=== PATIENT | male | born 1975 | race Caucasian/White ===

== ENCOUNTER 2019-03-23 05:30 | Inpatient (IN) | payer MEDICAID ==
[~2019-03-23] VITALS: Ht 167.6 cm; Wt 83.2 kg
[2019-03-23] VITALS (28 sets, daily range): BP systolic 92–120; BP diastolic 52–79; PULSE 55–150; RESP 16–27; Ht 167.6 cm; Wt 83.2 kg
[~2019-03-23 05:30] MED LIST: NITROGLYCERIN 50 MG/D5W (PMX) 0 ML ONE
[2019-03-23] MEDS ORDERED: ASPIRIN 325 MG TAB PO STA (05:42)
[2019-03-23] MEDS ORDERED: morphine 4 MG/ML VIAL IV STA (05:42)
[2019-03-23] MEDS ORDERED: ONDANSETRON 4 MG INJ IV STA (05:42)
[2019-03-23] MEDS ORDERED: HEPARIN 1000 UNITS/ML 10 ML INJ IV STA (05:45)
[2019-03-23] MEDS ORDERED: HEPARIN 25000 UNITS/250 ML 250 ML IV STA (05:45)
--- NOTE | 2019-03-23 05:53 | ERD ---
ER Documentation Chief Complaint Chief Complaint chest pain x 2 days HPI Is a very pleasant 43-year-old gentleman who presents the emergency with chest pain. EKG at triage shows ST elevation microinfarction. Patient describes 2 to 3 days of symptoms of chest discomfort. Today just prior to arrival he notes worsening chest pressure that is centralized. No mid back pain, no ripping or tearing sensation. No numbness or tingling. Patient is a smoker. The patient has family history of cardiac disease. He denies pleuritic pain cough or significant shortness of breath. Symptoms are moderate. rn postpartum used ROS All systems reviewed and are negative except as per history of present illness. Allergies Allergies: Coded Allergies: No Known Drug Allergies (Verified Allergy, Unknown, 03/23/19) FmHx Family History: No diabetes Physical Exam Vitals Vital Signs Date Temp Pulse Resp B/P (MAP) Pulse Ox O2 O2 Flow FiO2 Time Delivery Rate 03/23/19 47 19 143/94 100 Nasal 06:15 (110) Cannula 03/23/19 54 20 132/91 100 Nasal 2.0 06:00 (105) Cannula 03/23/19 Nasal 2 05:53 Cannula 03/23/19 97.6 68 18 176/100 100 05:33 (125) Physical Exam General: Well developed, well nourished, no acute distress Head: Normocephalic, atraumatic. Eyes: Pupils equally reactive, EOM intact ENT: Moist mucous membranes Neck: Supple, no lymphadenopathy Respiratory: Lungs clear bilaterally, no distress Cardiovascular: RRR, no murmurs, rubs, or gallops Abdominal: Soft, non-tender, non-distended, no peritoneal signs : Deferred MSK: No edema, no unilateral swelling, 5/5 strength Neurologic: Alert and oriented, moving all extremities, normal speech, no focal weakness, no cerebellar signs Skin: No rash Psych: Normal mood Result Diagram: 03/23/19 0540 03/23/19 0540 Results 24 hrs Laboratory Tests Test 03/23/19 05:40 White Blood Count 12.3 10^3/ul Red Blood Count 4.62 10^6/ul Hemoglobin 15.1 g/dl Hematocrit 42.3 % Mean Corpuscular Volume 91.6 fl Mean Corpuscular Hemoglobin 32.7 pg Mean Corpuscular Hemoglobin Concent 35.7 g/dl Red Cell Distribution Width 11.9 % Platelet Count 240 10^3/UL Mean Platelet Volume 10.4 fl Immature Granulocytes % 0.200 % Neutrophils % 67.8 % Lymphocytes % 22.0 % Monocytes % 7.9 % Eosinophils % 1.3 % Basophils % 0.8 % Nucleated Red Blood Cells % 0.0 /100WBC Immature Granulocytes # 0.030 10^3/ul Neutrophils # 8.4 10^3/ul Lymphocytes # 2.7 10^3/ul Monocytes # 1.0 10^3/ul Eosinophils # 0.2 10^3/ul Basophils # 0.1 10^3/ul Nucleated Red Blood Cells # 0.0 10^3/ul Prothrombin Time 12.8 Sec Prothrombin Time Ratio 1.0 INR International Normalized Ratio 0.95 Activated Partial Thromboplast Time 27.9 Sec Sodium Level 136 mmol/L Potassium Level 3.9 mmol/L Chloride Level 99 mmol/L Carbon Dioxide Level 27 mmol/L Anion Gap 10 Blood Urea Nitrogen 8 mg/dl Creatinine 0.58 mg/dl Est Glomerular Filtrat Rate mL/min > 60 mL/min Glucose Level 256 mg/dl Calcium Level 9.2 mg/dl Troponin I Pending Current Medications Medications Dose Sig/Clara Start Time Status Last (Trade) Ordered Route PRN Stop Time Admin Dose Reason Admin Aspirin 325 mg ONCE STAT 03/23/19 DC 03/23/19 (Aspirin) PO 05:42 03/23/19 05:47 05:43 Morphine 4 mg ONCE STAT 03/23/19 DC 03/23/19 Sulfate IV 05:42 03/23/19 05:47 (morphine) 05:43 Ondansetron 4 mg ONCE STAT 03/23/19 DC 03/23/19 HCl (Zofran IV 05:42 03/23/19 05:48 Inj) 05:43 Heparin 5,000 unit ONCE STAT 03/23/19 DC 03/23/19 Sodium IV 05:45 03/23/19 05:45 (Porcine) 05:48 (Heparin (1000 Units/ml)) Heparin 250 ml @ 0 ONCE STAT 03/23/19 DC Sodium mls/hr IV 05:45 03/23/19 (Porcine) 05:48 Procedures/MDM EKG, MONITORS, & DIAGNOSTIC IMAGING: EKG: I reviewed and interpreted a 12-lead EKG. Rhythm: Normal sinus rhythm ST Changes: ST segment elevation in the inferior leads with reciprocal changes in anterior leads T waves: No contiguous T wave inversions Impression: ST elevation myocardial infraction Chest x-ray: I reviewed and interpreted a 1 view of the chest Mediastinum: No enlargement Cardiac silhouette: No cardiomegaly Airspace: Clear lung burnett bilaterally without evidence of pneumothorax Bones: No evidence of fracture PROCEDURES: [None] LAB INTERPRETATION: * Pending MEDICAL DECISION MAKING: The patient's history, physical exam and clinical presentation is consistent with ST elevation myocardial infraction in the inferior pattern. The patient is otherwise well-appearing and has had several days of symptoms but worse recently. His EKG has ST segment elevations with reciprocal changes. Code STEMI activated. 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 Heparin bolus and drip initiated. I will hold on nitroglycerin given inferior changes. * Pacer pads placed on the patient. Critical Care Note: Total time: 35 Indication/Organ System Threat: Acute EKG changes suggestive of ST elevation myocardial infarction and significant risk for cardiovascular compromise and collapse. I spent the above amount of critical care time with the patient, not including billable procedures. This included chart review, consultations, repeat bedside evaluations, and titration of appropriate medications to prevent cardiopulmonary or respiratory collapse. CONSULTATION: middle school history teacher Dr. Magana DISPOSITION PLAN: Taken directly to the [facility] Dr. Aviles notified for admission Departure Diagnosis: Primary Impression: STEMI (ST elevation myocardial infarction) Involved coronary artery: unspecified coronary artery Qualified Codes: I21.3 - ST elevation (STEMI) myocardial infarction of unspecified site Condition: Critical RAYMUNDO ROY MD Mar 23, 2019 05:53
[2019-03-23] MEDS ORDERED: IODIXANOL LOCM 100 ML BTL ONE (06:19)
[2019-03-23] MEDS ORDERED: LIDOCAINE 1% (MDV) 20 ML INJ ONE (06:19)
[2019-03-23] MEDS ORDERED: HEPARIN 1000 UNITS/ML 10 ML INJ ONE (06:19)
[2019-03-23] MEDS ORDERED: NITROGLYCERIN (IC) 100 MCG/ML INJ ONE (06:20)
[2019-03-23] MEDS ORDERED: FENTAnyl 50 MCG/ML VIAL ONE (06:20)
[2019-03-23] MEDS ORDERED: VERAPAMIL 5 MG INJ ONE (06:20)
[2019-03-23] MEDS ORDERED: MIDAZOLAM 1 MG/ML 2 ML INJ ONE (06:20)
[2019-03-23] MEDS ORDERED: TICAGRELOR 90 MG TABLET ONE (06:54)
[2019-03-23] MEDS ORDERED: niCARdipine 25 MG INJ ONE (06:58)
[2019-03-23] MEDS ORDERED: BIVALIRUDIN 250MG /NS 50 ML 50 ML IVPB ONE ×2 (07:02→07:21)
--- NOTE | 2019-03-23 07:25 | OPR ---
Date/Time of Note Date/Time of Note DATE: 03/23/19 TIME: 07:25 Operative Report Procedure Date: Mar 23, [address] elevation myocardial infarction Postoperative Diagnosis Obstructive coronary artery disease ST elevation myocardial infarction Operation/Procedure Performed Left heart catheterization Right and left coronary angiogram Interpretation and supervision of right and left coronary angiogram PCI of the mid to distal RCA with a placement of a 3.0 x 16 mm Synergy drug- eluting stent Left ventricular pressure measurements Right femoral artery approach Conscious sedation Surgeon see signature line Colorist Internal Controls Specialist staff Anesthesia Type: MAC Estimated Blood Loss: minimal Transfusion none Specimen None Grafts/Implants none Complications none Pt Condition Post Procedure: guarded Procedure Description Findings Hemodynamics LV pressure 121/13 with EDP of 22 Aortic pressure 111/64 Coronary findings Left main is large caliber vessel with no significant disease LAD is a medium caliber vessel with a mid 30% stenosis Circumflex is a medium caliber vessel with mild luminal irregularities RCA is a medium to large caliber vessel, prior to the bifurcation of the PDA and PLB there is a 99% stenosis Description of procedure Patient brought to the Internal Controls Specialist after informed consent. Patient prepped and draped as per protocol. Initially, right radial artery access was obtained but we had difficulty wiring the vessel. We then switched over to right femoral artery approach using ultrasound guidance. A micropuncture kit was used, a 6 F rench sheath was placed. Initially a JL 3.5 diagnostic catheter was used to engage left main. Angiogram was performed. We then use a 6 Cymraes Peter 0.75 catheter to engage the RCA and angiogram was performed. This was a culprit lesion. Angiomax was used for anticoagulation. A run through wire was used to cross the lesion. We predilated. This causes patient become bradycardic, atropine was given with improvement in heart rates. We then stented with a 3.0 x 16 mm Synergy drug-eluting stent. This was postdilated with at high pressure with the stent delivery system balloon. There was an excellent graphic result with CYDNEY-3 flow with no evidence of dissection with good myocardial blush. Given there was not good engagement of the left system with a JL 3.5, we next went with a diagnostic JL4 catheter and angiogram of the left system was performed. There was no evidence of any significant lesions. We then went in with a 5 Cymraes pigtail and into the left ventricle and pressure measurements were obtained as well as pullback. Patient was loaded with Brilinta once the culprit lesion was visualized. Groin shot was performed with good sheath position, we placed an Angio-Seal device. There was no immediate complications. Recommendations Dual antiplatelet therapy for minimum of 1 year to maintain stent patency. Aggressive risk factor management. Osmel Magana DO Mar 23, 2019 07:25
[2019-03-23] MEDS ORDERED: ONDANSETRON 4 MG INJ IV PRN (07:30)
[2019-03-23] MEDS ORDERED: AL HYDROX/MG HYDROX/SIMETH 30 ML CUP PO PRN (07:30)
[2019-03-23] MEDS ORDERED: SOD CHLORIDE 0.9% 1,000 ML IV SCH (08:00)
[2019-03-23] MEDS ORDERED: GLUCOSE GEL 15 GRAM TUBE PO PRN ×2 (12:30)
[2019-03-23] MEDS ORDERED: GLUCOSE GEL 15 GRAM TUBE BUCCAL PRN (12:30)
[2019-03-23] MEDS ORDERED: GLUCAGON 1 MG INJ IM PRN (12:30)
[2019-03-23] MEDS ORDERED: DEXTROSE 50% 50 ML SYRINGE IV PRN ×2 (12:30)
--- NOTE | 2019-03-23 14:05 | CONS ---
Assessment/Plan Assessment/Plan Hospital Course (Demo Recall) Inferior ST elevation myocardial infarction CAD status post PCI to RCA 03/23/2019 New diagnosis diabetes Tobacco use No health insurance Patient with cardiac catheter seen with evidence of severe stenosis in the RCA status post single drug-eluting stent He is currently chest pain-free, continue dual antiplatelet therapy, check echocardiogram, statin therapy No beta-whitney given bradycardia Diabetes management Smoking cessation Discussed with patient, he he tells me does not have health insurance and would have issues with medications and follow-up. I did request case management involvement. Would switch patient over to Plavix starting from tomorrow given this is generic and more affordable for patient. I did discuss with the patient at length the importance of medication compliance to prevent recurrent myocardial infarction Consultation Date/Type/Reason Admit Date/Time Mar 23, 2019 at 07:21 Type of Consult Cardiology Reason for Consultation Chest pain and ST elevation myocardial infarction Date/Time of Note DATE: 03/23/19 TIME: 14:01 Hx of Present Illness This is a 43-year-old male with past medical history of tobacco use, who has not seen a physician in many years who presents with chest pain worsening over the past 2 to 3 days. Symptoms became severe and he came to the emergency room. Chest pain with shortness of breath. Chest pain is pressure-like. Denies any cardiac history but has not seen a physician at an many years. He tells me he does not have health insurance because of that, he does not see a doctor regularly. 12 point review of systems was performed with all pertinent positives and negatives mentioned above and all else is negative Past Medical History Medical History: no pertinent history Medications Current Medications Miscellaneous Information (* Miscellaneous Pharmacy Order) Hold all Metformin ... ONCE XX ; Start 03/23/19 at 07:30; Stop 03/25/19 at 07:29 Aspirin (Halfprin) 81 mg DAILY PO ; Start 03/24/19 at 09:00 Al Hydrox/Mg Hydrox/Simethicone (Mag-Al Plus) 30 ml Q4H PRN PO GASTROINTESTINAL UPSET; Start 03/23/19 at 07:30 Ondansetron HCl (Zofran Inj) 4 mg Q4H PRN IV NAUSEA AND/OR VOMITING; Start 03/23/19 at 07:30 Atorvastatin Calcium (Lipitor) 80 mg DAILY@21 PO ; Start 03/23/19 at 21:00 Ticagrelor (Brilinta) 90 mg BID PO ; Start 03/23/19 at 21:00 Insulin Aspart (Novolog Insulin Pen) NOVOLOG *MILD* ALGORITHM WITH MEALS BEDTIME SC ; Start 03/23/19 at 17:35 Miscellaneous Information 1 ea NOTE XX ; Start 03/23/19 at 12:30 Glucose (Glutose) 15 gm Q15M PRN PO DECREASED GLUCOSE; Start 03/23/19 at 12:30 Glucose (Glutose) 22.5 gm Q15M PRN PO DECREASED GLUCOSE; Start 03/23/19 at 12:30 Dextrose (D50w Syringe) 25 ml Q15M PRN IV DECREASED GLUCOSE; Start 03/23/19 at 12:30 Dextrose (D50w Syringe) 50 ml Q15M PRN IV DECREASED GLUCOSE; Start 03/23/19 at 12:30 Glucagon (Glucagen) 1 mg Q15M PRN IM DECREASED GLUCOSE; Start 03/23/19 at 12:30 Glucose (Glutose) 15 gm Q15M PRN BUCCAL DECREASED GLUCOSE; Start 03/23/19 at 12:30 Diagnostic Test (Pha) (Accu-Chek) 1 ea 02 XX ; Start 03/24/19 at 02:00 Allergies: Coded Allergies: No Known Drug Allergies (Verified Allergy, Unknown, 03/23/19) Past Surgical History Past Surgical Hx: no surgical history Social History Alcohol Use: occasionally Smoking Status: Current every day smoker Drug Use: none 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 Vital Signs Vitals Vital Signs Date Temp Pulse Resp B/P (MAP) Pulse Ox O2 O2 Flow FiO2 Time Delivery Rate 03/23/19 56 12:00 03/23/19 20 100/70 100 09:45 (80) 03/23/19 Room Air 09:00 03/23/19 98.1 08:00 03/23/19 2.0 06:00 Exam Constitutional: alert, oriented, well developed Head: normocephalic Respiratory: clear to auscultation, normal air movement Cardiovascular: regular rate and rhythm, other (S1-S2 heard) Gastrointestinal: soft, non-tender, bowel sounds Extremities: other (No significant edema) Labs Result Diagram: 03/23/19 0540 03/23/19 0540 Results 24hrs Laboratory Tests Test 03/23/19 05:40 03/23/19 10:54 03/23/19 11:57 White Blood Count 12.3 H Red Blood Count 4.62 L Hemoglobin 15.1 Hematocrit 42.3 Mean Corpuscular Volume 91.6 Mean Corpuscular Hemoglobin 32.7 Mean Corpuscular Hemoglobin Concent 35.7 Red Cell Distribution Width 11.9 Platelet Count 240 Mean Platelet Volume 10.4 Immature Granulocytes % 0.200 Neutrophils % 67.8 Lymphocytes % 22.0 Monocytes % 7.9 Eosinophils % 1.3 Basophils % 0.8 Nucleated Red Blood Cells % 0.0 Immature Granulocytes # 0.030 Neutrophils # 8.4 H Lymphocytes # 2.7 Monocytes # 1.0 H Eosinophils # 0.2 Basophils # 0.1 Nucleated Red Blood Cells # 0.0 Prothrombin Time 12.8 Prothrombin Time Ratio 1.0 INR International Normalized Ratio 0.95 Activated Partial Thromboplast Time 27.9 Sodium Level 136 Potassium Level 3.9 Chloride Level 99 Carbon Dioxide Level 27 Anion Gap 10 Blood Urea Nitrogen 8 Creatinine 0.58 L Est Glomerular Filtrat Rate mL/min > 60 Glucose Level 256 H Hemoglobin A1c 9.7 H Calcium Level 9.2 Troponin I 0.952 *H 71.600 *H Creatine Kinase 2188 H Creatine Kinase Index 7.5 Creatinine Kinase MB (Mass) 164.00 H Bedside Glucose 237 H Imaging Imaging ECG with inferior ST elevations Medications Medications Current Medications Miscellaneous Information (* Miscellaneous Pharmacy Order) Hold all Metformin ... ONCE XX ; Start 03/23/19 at 07:30; Stop 03/25/19 at 07:29 Aspirin (Halfprin) 81 mg DAILY PO ; Start 03/24/19 at 09:00 Al Hydrox/Mg Hydrox/Simethicone (Mag-Al Plus) 30 ml Q4H PRN PO GASTROINTESTINAL UPSET; Start 03/23/19 at 07:30 Ondansetron HCl (Zofran Inj) 4 mg Q4H PRN IV NAUSEA AND/OR VOMITING; Start 03/23/19 at 07:30 Atorvastatin Calcium (Lipitor) 80 mg DAILY@21 PO ; Start 03/23/19 at 21:00 Ticagrelor (Brilinta) 90 mg BID PO ; Start 03/23/19 at 21:00 Insulin Aspart (Novolog Insulin Pen) NOVOLOG *MILD* ALGORITHM WITH MEALS BEDTIME SC ; Start 6/7/19 at 17:35 Miscellaneous Information 1 ea NOTE XX ; Start 03/23/19 at 12:30 Glucose (Glutose) 15 gm Q15M PRN PO DECREASED GLUCOSE; Start 03/23/19 at 12:30 Glucose (Glutose) 22.5 gm Q15M PRN PO DECREASED GLUCOSE; Start 03/23/19 at 12:30 Dextrose (D50w Syringe) 25 ml Q15M PRN IV DECREASED GLUCOSE; Start 03/23/19 at 1 2:30 Dextrose (D50w Syringe) 50 ml Q15M PRN IV DECREASED GLUCOSE; Start 03/23/19 at 12:30 Glucagon (Glucagen) 1 mg Q15M PRN IM DECREASED GLUCOSE; Start 03/23/19 at 12:30 Glucose (Glutose) 15 gm Q15M PRN BUCCAL DECREASED GLUCOSE; Start 03/23/19 at 12:30 Diagnostic Test (Pha) (Accu-Chek) 1 ea 02 XX ; Start 03/24/19 at 02:00 Osmel Magana DO Mar 23, 2019 14:05
[2019-03-23] MEDS: SOD CHLORIDE 0.9% 1,000 ML IV SCH (16:00)
--- NOTE | 2019-03-23 16:06 | HP ---
Date/Time of Note Date/Time of Note DATE: 03/23/19 TIME: 16:00 Assessment/Plan VTE Prophylaxis SCD applied (from Nsg): Yes Pharmacological prophylaxis: NA/contraindicated Pharm contraindication: low risk/ambulating Lines/Catheters IV Catheter Type (from Nrsg): Peripheral IV Urinary Cath still in place: No Assessment/Plan Hospital Course 43 yo M who presented with 3 day hx of CP managed as follows : 1. Inferior ST elevation myocardial infarction -Code stemmi call ed ion ER -s/p emergent LHC with finding of CAD status post PCI to RCA 03/23/2019 2. New diagnosis diabetes Mellitus Typ2, Aic 9.6 -begin Insulin (lantus / novolog) -DM education -get lipid profile and tsh 3. Chronic Tobacco use -Smoking Cessation Therapy: Pt. was counselled for greater than 3 minutes on the health risks of continued smoking and the benefits of cessation, this will continue to be reinforced throughout hospitalization. 4.Rhabdomyolysis -gentle hydration, trend labs Dispo: -continue ICU overnight monitor and care -patient willing to pay for important meds out of pocket until insurance goes through. Result Diagram: 03/23/19 0540 03/23/19 0540 Results 24hrs Laboratory Tests Test 03/23/19 05:40 03/23/19 10:54 03/23/19 11:57 White Blood Count 12.3 H Red Blood Count 4.62 L Hemoglobin 15.1 Hematocrit 42.3 Mean Corpuscular Volume 91.6 Mean Corpuscular Hemoglobin 32.7 Mean Corpuscular Hemoglobin Concent 35.7 Red Cell Distribution Width 11.9 Platelet Count 240 Mean Platelet Volume 10.4 Immature Granulocytes % 0.200 Neutrophils % 67.8 Lymphocytes % 22.0 Monocytes % 7.9 Eosinophils % 1.3 Basophils % 0.8 Nucleated Red Blood Cells % 0.0 Immature Granulocytes # 0.030 Neutrophils # 8.4 H Lymphocytes # 2.7 Monocytes # 1.0 H Eosinophils # 0.2 Basophils # 0.1 Nucleated Red Blood Cells # 0.0 Prothrombin Time 12.8 Prothrombin Time Ratio 1.0 INR International Normalized Ratio 0.95 Activated Partial Thromboplast Time 27.9 Sodium Level 136 Potassium Level 3.9 Chloride Level 99 Carbon Dioxide Level 27 Anion Gap 10 Blood Urea Nitrogen 8 Creatinine 0.58 L Est Glomerular Filtrat Rate mL/min > 60 Glucose Level 256 H Hemoglobin A1c 9.7 H Calcium Level 9.2 Troponin I 0.952 *H 71.600 *H Creatine Kinase 2188 H Creatine Kinase Index 7.5 Creatinine Kinase MB (Mass) 164.00 H Bedside Glucose 237 H HPI/ROS Admit Date/Time Admit Date/Time Mar 23, 2019 at 07:21 Hx of Present Illness Is a very pleasant 43-year-old gentleman who presents the emergency with chest pain. EKG at triage shows ST elevation microinfarction. Patient describes 2 to 3 days of symptoms of chest discomfort. Today just prior to arrival he notes worsening chest pressure that is centralized. No mid back pain, no ripping or tearing sensation. No numbness or tingling. Patient is a smoker. The patient has family history of cardiac disease. He denies pleuritic pain cough or significant shortness of breath. Code STEMI was activated and patient was taken to [facility] right away. He's currently post PCI and has no further pain. He hasn't been to see a doctor in years and has no PCP or insurance ROS 12 point review if systems was done and pertinent findings are as noted. PMH/Family/Social Past Medical History Medical History: hypertension Medications Current Medications Miscellaneous Information (* Miscellaneous Pharmacy Order) Hold all Metformin ... ONCE XX ; Start 03/23/19 at 07:30; Stop 03/25/19 at 07:29 Aspirin (Halfprin) 81 mg DAILY PO ; Start 03/24/19 at 09:00 Al Hydrox/Mg Hydrox/Simethicone (Mag-Al Plus) 30 ml Q4H PRN PO GASTROINTESTINAL UPSET; Start 03/23/19 at 07:30 Ondansetron HCl (Zofran Inj) 4 mg Q4H PRN IV NAUSEA AND/OR VOMITING; Start 03/23/19 at 07:30 Atorvastatin Calcium (Lipitor) 80 mg DAILY@21 PO ; Start 03/23/19 at 21:00 Ticagrelor (Brilinta) 90 mg BID PO ; Start 03/23/19 at 21:00; Stop 03/23/19 at 23:00 Insulin Aspart (Novolog Insulin Pen) NOVOLOG *MILD* ALGORITHM WITH MEALS BEDTIME SC ; Start 03/23/19 at 17:35 Miscellaneous Information 1 ea NOTE XX ; Start 03/23/19 at 12:30 Glucose (Glutose) 15 gm Q15M PRN PO DECREASED GLUCOSE; Start 03/23/19 at 12:30 Glucose (Glutose) 22.5 gm Q15M PRN PO DECREASED GLUCOSE; Start 03/23/19 at 12:30 Dextrose (D50w Syringe) 25 ml Q15M PRN IV DECREASED GLUCOSE; Start 03/23/19 at 12:30 Dextrose (D50w Syringe) 50 ml Q15M PRN IV DECREASED GLUCOSE; Start 03/23/19 at 12:30 Glucagon (Glucagen) 1 mg Q15M PRN IM DECREASED GLUCOSE; Start 03/23/19 at 12:30 Glucose (Glutose) 15 gm Q15M PRN BUCCAL DECREASED GLUCOSE; Start 03/23/19 at 12:30 Diagnostic Test (Pha) (Accu-Chek) 1 ea 02 XX ; Start 03/24/19 at 02:00 Clopidogrel Bisulfate (plaVIX) 600 mg ONCE ONCE PO ; Start 03/24/19 at 09:00; Stop 03/24/19 at 09:01 Clopidogrel Bisulfate (plaVIX) 75 mg DAILY PO ; Start 03/25/19 at 09:00 Coded Allergies: No Known Drug Allergies (Verified Allergy, Unknown, 03/23/19) Past Surgical History Past Surgical Hx: no surgical history Social History Alcohol Use: occasionally Smoking Status: Current every day smoker Drug Use: none Exam/Review of Systems Vital Signs Vitals Vital Signs Date Temp Pulse Resp B/P (MAP) Pulse Ox O2 O2 Flow FiO2 Time Delivery Rate 03/23/19 56 12:00 03/23/19 20 100/70 100 09:45 (80) 03/23/19 Room Air 09:00 03/23/19 98.1 08:00 03/23/19 2.0 06:00 Exam Exam General: A&O x3, answering questions appropriately HEENT: NC/ AT. PERRL. EOM intact Neck: supple CVS: S1, S2, RRR. no murmurs. no pain on chest wall palpation Lungs: CTA b/l. no wheezing or rhonchi Abd: soft, nontender, +BS Ext: moving all extremities skin: no rashes Additional Comments PROCEDURE: XR Chest. CLINICAL INDICATION: Chest Pain. TECHNIQUE: Portable AP view of the chest was obtained. COMPARISON: None. FINDINGS: Mild central venous congestion. No focal consolidation or edema. No effusion or pneumothorax. Cardiac silhouette is normal. No acute osseous abnormality. IMPRESSION: Mild central venous congestion without focal consolidation. RPTAT:AAJJ Carmita Lozano, Physician Date Time Electronically viewed and signed by Carmita Lozano, Physician on 03/23/2019 06:19 RF/ CC: RAYMUNDO ROY MD [id number] ESTHER RODRIGES Mar 23, 2019 16:06
--- NOTE | 2019-03-23 17:23 | RADRPT ---
Vent Rate: 61 bpm RR Interval: 984 msec DC Interval: 149 msec QRS Duration: 99 msec QT Interval: 444 msec QTC Interval: 448 msec P-R-T [employer]: 56 - -2 - -27 degrees Sinus rhythm...normal P axis, V-rate 50- 99 Inferior infarct, age indeterminate...Q>35mS, T neg, II III aVF Electronically Signed By: Dashawn Mathews
[2019-03-23] MEDS: INSULIN ASPART [NOVOLOG] 3 ML PEN SC SCH ×3 (19:41→21:42)
[2019-03-23] MEDS ORDERED: INSULIN GLARGINE [LANTus] (100 UNITS/ML) SYG SC SCH (20:00)
[2019-03-23] MEDS ORDERED: CLOPIDOGREL 300 MG TAB PO ONE (21:00)
[2019-03-23] MEDS ORDERED: TICAGRELOR 90 MG TABLET PO SCH (21:00)
[2019-03-23] MEDS: ATORVASTATIN 80 MG TAB PO SCH (21:35)
[2019-03-24] VITALS (22 sets, daily range): BP systolic 82–133; BP diastolic 41–80; PULSE 57–85; RESP 14–29
[2019-03-24] MEDS: ACCUCHECK AT 2AM (Patients on SS coverage) XX SCH (02:10)
[2019-03-24] MEDS: SOD CHLORIDE 0.9% 1,000 ML IV SCH ×3 (05:21→20:27)
[2019-03-24] MEDS: INSULIN ASPART [NOVOLOG] 3 ML PEN SC SCH ×5 (07:35→20:29)
[2019-03-24] MEDS ORDERED: CLOPIDOGREL 75 MG TAB PO SCH (09:00)
[2019-03-24] MEDS ORDERED: CLOPIDOGREL 75 MG TAB PO ONE (09:00)
--- NOTE | 2019-03-24 09:13 | PN ---
Date/Time of Note Date/Time of Note DATE: 03/24/19 TIME: 09:12 Objective Vitals Vital Signs Date Temp Pulse Resp B/P (MAP) Pulse Ox O2 O2 Flow FiO2 Time Delivery Rate 03/24/19 68 08:00 03/24/19 20 101/74 97 Room Air 03:00 (83) 03/24/19 98.8 00:00 03/23/19 2.0 06:00 Intake and Output 03/23/19 03/23/19 03/24/19 1515:00 23:00 07:00 IntakeIntake Total 571.36 ml 525 ml 46 ml OutputOutput Total 700 ml 1500 ml 500 ml BalanceBalance -128.64 ml -975 ml -454 ml Results Result Diagram: 03/24/19 0426 03/24/19 0426 Medications Medications Current Medications Miscellaneous Information (* Miscellaneous Pharmacy Order) Hold all Metformin ... ONCE XX ; Start 03/23/19 at 07:30; Stop 03/25/19 at 07:29 Aspirin (Halfprin) 81 mg DAILY PO ; Start 03/24/19 at 09:00 Al Hydrox/Mg Hydrox/Simethicone (Mag-Al Plus) 30 ml Q4H PRN PO GASTROINTESTINAL UPSET; Start 03/23/19 at 07:30 Ondansetron HCl (Zofran Inj) 4 mg Q4H PRN IV NAUSEA AND/OR VOMITING; Start 03/23/19 at 07:30 Atorvastatin Calcium (Lipitor) 80 mg DAILY@21 PO Last administered on 03/23/19at 21:35; Admin Dose 80 MG; Start 03/23/19 at 21:00 Insulin Aspart (Novolog Insulin Pen) NOVOLOG *MILD* ALGORITHM WITH MEALS BEDTIME SC Last administered on 03/24/19at 09:01; Admin Dose 1 UNIT; Start 03/23/19 at 17:35 Miscellaneous Information 1 ea NOTE XX ; Start 03/23/19 at 12:30 Glucose (Glutose) 15 gm Q15M PRN PO DECREASED GLUCOSE; Start 03/23/19 at 12:30 Glucose (Glutose) 22.5 gm Q15M PRN PO DECREASED GLUCOSE; Start 03/23/19 at 12:30 Dextrose (D50w Syringe) 25 ml Q15M PRN IV DECREASED GLUCOSE; Start 03/23/19 at 12:30 Dextrose (D50w Syringe) 50 ml Q15M PRN IV DECREASED GLUCOSE; Start 03/23/19 at 12:30 Glucagon (Glucagen) 1 mg Q15M PRN IM DECREASED GLUCOSE; Start 03/23/19 at 12:30 Glucose (Glutose) 15 gm Q15M PRN BUCCAL DECREASED GLUCOSE; Start 03/23/19 at 12:30 Diagnostic Test (Pha) (Accu-Chek) 1 ea 02 XX Last administered on 03/24/19at 02:10; Admin Dose 1 EA; Start 03/24/19 at 02:00 Clopidogrel Bisulfate (plaVIX) 75 mg DAILY PO ; Start 03/25/19 at 09:00 Sodium Chloride 1,000 ml @ 75 mls/hr [id number] IV Last administered on 03/24/19at 05:21; Admin Dose 75 MLS/HR; Start 03/23/19 at 16:00; Stop 03/24/19 at 18:39 Repaglinide (Prandin) 1 mg AC MEALS PO ; Start 03/24/19 at 11:00 VTE Prophylaxis Risk score (from Nsg)>0 risk: 6 SCD applied (from Ns): Yes SCD contraindication: other Lines/Catheters IV Catheter Type: Tracy in Place: No Assessment/Plan Hospital Course Subjective Patient feeling well, no chest pain Objective Physical exam General: Patient is laying in bed and answers questions appropriately Mentation: Patient is alert and oriented 4, Head: Normocephalic atraumatic Eyes: EOMI, pupils reactive to light Neck: Supple, nontender, midline Respiratory: Clear to auscultation bilaterally Cardiovascular: regular rate, no obvious murmurs Gastrointestinal: non-tender to palpation, bowel sounds heard. Neurological: Moves all extremities spontaneously Skin: No new skin lesions Assessment and plan ST elevation [place] -Status post emergent left heart cath with finding of coronary artery disease status post PCI to RCA done on March 23, 2019 -continue medications started by roving or yarn color checker which includes aspirin and Plavix Newly diagnosed diabetes mellitus type 2 -A1c 9.6 -Stop insulin for now as patient will be unlikely to afford them as patient has no insurance -Start Prandin and metformin will be started once CK fully resolves -diabetic educator -Monitor Tobacco use -Smoking cessation therapy Rhabdomyolysis -Continue hydration Disposition -Okay to downgrade to telemetry when okay with cardiology -We will need to manage sugars better before discharge as patient has no insurance and has no primary care physician -More than 40 minutes of critical care time was spent on this encounter. SPENSER JOHN Mar 24, 2019 09:13
[2019-03-24] MEDS: ASPIRIN (EC) 81 MG TAB PO SCH (09:42)
[2019-03-24] MEDS: REPAGLINIDE 1 MG TAB PO SCH ×2 (12:24→17:24)
--- NOTE | 2019-03-24 16:02 | RADRPT ---
Echocardiogram Report Patient Name: SHAI JUANPatient ID: [id number] : 1975 (43y 3m)Study Date: 03/24/2019 11:21:57 AM Gender: MAccession #: [id number] Tech: YEISON Location: [facility] Ref.Physician: ANIBAL CROSS Height(Cm): 168 BSA: 1.97Weight(Kg): 83 Quality: GoodOrder Physician: ANIBAL CROSS Account #: Procedures: Echocardiographic Report: Transthoracic echocardiogram with complete 2D, M-Mode, and doppler examination. Indications: Acute Myocardial Infarction. Measurements: 2D/M Mode Doppler Measurement Value Normal Range Measurement Value Normal Range LVIDd 2D 4.6 [ 4.2 - 5.8 ] cm AV Peak Delvin 1.3 [ 100.0 - 170.0 ] cm/se c LVIDs 2D 3.5 [ 2.5 - 4.0 ] cm AV Peak PG 6.0 [ 2.0 - 9.0 ] mmHg LVPWd 2D 1.0 [ 0.6 - 1.0 ] cm LVOT Peak Delvin 0.9 [ 70.0 - 110.0 ] cm/sec IVSd 2D 1.1 [ 0.6 - 1.0 ] cm LVOT Peak PG 3.0 [ 2.0 - 6.0 ] mmHg AoR Diam 2D 3.4 [ 2.6 - 3.4 ] cm MV E Peak Delvin 0.7 [ 60.0 - 130.0 ] cm/sec EF 2D 47.1 [ 52.0 - 72.0 ] percent MV A Peak Delvin 0.8 [ 100.0 - 120.0 ] cm/se c LA Dimen 2D 3.9 [ 3.0 - 4.0 ] cm MV E/A 0.9 [ 0.8 - 1.5 ] ratio MV PHT 55.0 [ 20.0 - 100.0 ] msec MV Decel Time 187 [ 104 - 258 ] msec MV Decel Mason 4 Lat E` Delvin 0.1 [ 10.0 - 15.0 ] cm/sec Lateral E/E` 8.7 [ 1.0 - 2.0 ] ratio Med E` Delvin 0.1 cm/sec MV E/A 0.9 [ 0.8 - 1.5 ] ratio MVA PHT 4.0 [ 2.0 - 4.0 ] cm2 PV Peak Delvin 0.7 [ 40.0 - 80.0 ] cm/sec PV Peak PG 2.0 mmHg Findings: Left Ventricle: Normal left ventricular systolic function. Normal left ventricular wall thickness. Tissue Doppler/Mitral Doppler indices are consistent with impaired relaxation (Stage I diastolic dysfunction). Right Ventricle: Normal right ventricular systolic function. Left Atrium: The left atrium is normal in size. Right Atrium: The right atrium is normal in size. Mitral Valve: Normal appearance of the mitral valve. Aortic Valve: Normal trileaflet aortic valve structure. Tricuspid Valve: Normal appearance of the tricuspid valve. Unable to obtain RVSP due to minimal presence of tricuspid regurgitation. Pulmonic Valve: Pulmonic valve not well visualized. Pericardium: Normal pericardium with no significant pericardial effusion. Aorta: Normal aortic root. IVC: Normal size and normal respiratory collapse consistent with normal right atrial pressure. Conclusions: Normal left ventricular systolic function. Grade 1 diastolic dysfunction. Normal LV wall motion. No valvular abnormalities. Electronically Signed By: Kamala Bloom 2019-03-24 16:01:50 PDT
--- NOTE | 2019-03-24 16:14 | CONS ---
Assessment/Plan Assessment/Plan Hospital Course (Demo Recall) 43 yo with STEMI inferior wall, noted to be diabetic, also smokes and drinks heavily, admits 6-7 beers/night. Impression: STEMI inferior wall, s/p PCI/stent Diabetes, newly diagnosed, type 2 Tobacco use Alcohol heavy use Recommendations: Discussed importance of meds, lifestyle going forward Diabetes management per hospitalist Discussed importance of tobacco and alcohol cessation Continue asa, clopidogrel, statin, added an arb due to DM Stable for discharge from a cardiac standpoint Consultation Date/Type/Reason Admit Date/Time Mar 23, 2019 at 07:21 Initial Consult Date Type of Consult Cardiology Date/Time of Note DATE: 03/24/19 TIME: 16:11 24 HR Interval Summary Free Text/Dictation No chest pain, no dyspnea, does have mild right groin pain Exam/Review of Systems Vital Signs Vitals Vital Signs Date Temp Pulse Resp B/P (MAP) Pulse Ox O2 O2 Flow FiO2 Time Delivery Rate 03/24/19 76 12:00 03/24/19 20 101/74 97 Room Air 03:00 (83) 03/24/19 98.8 00:00 03/23/19 2.0 06:00 Intake and Output 03/23/19 03/23/19 03/24/19 1515:00 23:00 07:00 IntakeIntake Total 571.36 ml 525 ml 46 ml OutputOutput Total 700 ml 1500 ml 500 ml BalanceBalance -128.64 ml -975 ml -454 ml Exam Constitutional: alert, oriented, well developed Psych: no complaints, nl mood/affect Head: normocephalic, atraumatic Eyes: EOMI, nl lids ENMT: nl external ears & nose Neck: No jvd, No bruits Respiratory: clear to auscultation, normal air movement Cardiovascular: regular rate and rhythm, nl pulses, other (right groin site intact, no bruit, no hematoma, no bruise); No murmurs/extra sounds Gastrointestinal: soft, nl liver, spleen, non-tender Musculoskeletal: nl extremities to inspection Extremities: No edema Neurological: nl mental status, nl speech Skin: nl turgor, diaphoresis (mild) Labs Result Diagram: 03/24/196 03/24/19 0426 Results 24hrs Laboratory Tests Test 03/23/19 16:14 03/23/19 19:09 03/23/19 19:37 03/23/19 21:38 Magnesium Level 2.0 Creatine Kinase 1427 H Creatine Kinase Index 8.8 Creatinine Kinase MB 126.00 H (Mass) Troponin I 50.000 *H Potassium Level 3.9 Bedside Glucose 194 200 Test 03/24/19 02:06 03/24/19 04:26 03/24/19 04:43 03/24/19 08:56 Bedside Glucose 182 177 White Blood Count 11.2 H Red Blood Count 4.02 L Hemoglobin 13.1 L Hematocrit 37.9 L Mean Corpuscular Volume 94.3 Mean Corpuscular 32.6 Hemoglobin Mean Corpuscular 34.6 Hemoglobin Concent Red Cell Distribution 12.4 Width Platelet Count 188 # Mean Platelet Volume 11.2 H Immature Granulocytes % 0.400 Neutrophils % 56.8 Lymphocytes % 30.0 Monocytes % 10.4 Eosinophils % 2.0 Basophils % 0.4 Nucleated Red Blood 0.0 Cells % Immature Granulocytes # 0.040 H Neutrophils # 6.3 Lymphocytes # 3.4 H Monocytes # 1.2 H Eosinophils # 0.2 Basophils # 0.1 Nucleated Red Blood 0.0 Cells # Sodium Level 138 Potassium Level 4.3 Chloride Level 107 Carbon Dioxide Level 26 Anion Gap 5 Blood Urea Nitrogen 7 Creatinine 0.57 L Est Glomerular Filtrat > 60 Rate mL/min Glucose Level 179 Calcium Level 8.8 Magnesium Level 2.1 Creatine Kinase 925 H Triglycerides Level 448 H Cholesterol Level 237 H LDL Cholesterol, 117 Calculated HDL Cholesterol 30 Cholesterol/HDL Ratio 7.9 Thyroid Stimulating 1.180 Hormone (TSH) Test 03/24/19 12:24 Bedside Glucose 228 H Medications Medications Current Medications Miscellaneous Information (* Miscellaneous Pharmacy Order) Hold all Metformin ... ONCE XX ; Start 03/23/19 at 07:30; Stop 03/25/19 at 07:29 Aspirin (Halfprin) 81 mg DAILY PO Last administered on 03/24/19at 09:42; Admin Dose 81 MG; Start 03/24/19 at 09:00 Al Hydrox/Mg Hydrox/Simethicone (Mag-Al Plus) 30 ml Q4H PRN PO GASTROINTESTINAL UPSET; Start 03/23/19 at 07:30 Ondansetron HCl (Zofran Inj) 4 mg Q4H PRN IV NAUSEA AND/OR VOMITING; Start 03/23/19 at 07:30 Atorvastatin Calcium (Lipitor) 80 mg DAILY@21 PO Last administered on 03/23/19at 21:35; Admin Dose 80 MG; Start 03/23/19 at 21:00 Insulin Aspart (Novolog Insulin Pen) NOVOLOG *MILD* ALGORITHM WITH MEALS BEDTIME SC Last administered on 03/24/19at 12:44; Admin Dose 3 UNIT; Start 03/23 at 17:35 Miscellaneous Information 1 ea NOTE XX ; Start 03/23/19 at 12:30 Glucose (Glutose) 15 gm Q15M PRN PO DECREASED GLUCOSE; Start 03/23/19 at 12:30 Glucose (Glutose) 22.5 gm Q15M PRN PO DECREASED GLUCOSE; Start 03/23/19 at 12:30 Dextrose (D50w Syringe) 25 ml Q15M PRN IV DECREASED GLUCOSE; Start 03/23/19 at 12:30 Dextrose (D50w Syringe) 50 ml Q15M PRN IV DECREASED GLUCOSE; Start 03/23/19 at 12:30 Glucagon (Glucagen) 1 mg Q15M PRN IM DECREASED GLUCOSE; Start 03/23/19 at 12:30 Glucose (Glutose) 15 gm Q15M PRN BUCCAL DECREASED GLUCOSE; Start 03/23/19 at 12:30 Diagnostic Test (Pha) (Accu-Chek) 1 ea 02 XX Last administered on 03/24/19at 02:10; Admin Dose 1 EA; Start 03/24/19 at 02:00 Clopidogrel Bisulfate (plaVIX) 75 mg DAILY PO ; Start 03/25/19 at 09:00 Repaglinide (Prandin) 1 mg AC MEALS PO Last administered on 03/24/19at 12:24; Admin Dose 1 MG; Start 03/24/19 at 11:00 Sodium Chloride 1,000 ml @ 75 mls/hr [id number] IV Last administered on 03/24/19at 10:06; Admin Dose 75 MLS/HR; Start 03/24/19 at 09:30 GOVIND RAMEY Mar 24, 2019 16:14
[2019-03-24] MEDS: LOSARTAN 25 MG TAB PO SCH (17:24)
[2019-03-24] MEDS: ATORVASTATIN 80 MG TAB PO SCH (20:26)
[2019-03-25] VITALS (11 sets, daily range): BP systolic 89–129; BP diastolic 57–76; PULSE 60–85; RESP 18
[2019-03-25] MEDS: ACCUCHECK AT 2AM (Patients on SS coverage) XX SCH (02:00)
--- NOTE | 2019-03-25 07:34 | CONS ---
Assessment/Plan Assessment/Plan Hospital Course (Demo Recall) 43 yo with STEMI inferior wall, noted to be diabetic, also smokes and drinks heavily, admits 6-7 beers/night. Impression: STEMI inferior wall, s/p PCI/stent Diabetes, newly diagnosed, type 2 Tobacco use Alcohol heavy use Recommendations: Again discussed importance of meds, lifestyle, follow up with doctors Diabetes management per hospitalist Discussed importance of tobacco and alcohol cessation Continue asa, clopidogrel, statin, arb Stable for discharge from a cardiac standpoint Consultation Date/Type/Reason Admit Date/Time Mar 23, 2019 at 07:21 Initial Consult Date Type of Consult Cardiology Date/Time of Note DATE: 03/25/19 TIME: 07:33 24 HR Interval Summary Free Text/Dictation Groin pain better, no chest pain, is seen walking in his room. Exam/Review of Systems Vital Signs Vitals Vital Signs Date Temp Pulse Resp B/P (MAP) Pulse Ox O2 O2 Flow FiO2 Time Delivery Rate 03/25/19 65 04:00 03/25/19 98.3 18 129/76 98 00:10 (93) 03/24/19 Room Air 16:00 03/23/19 2.0 06:00 Intake and Output 03/24/19 03/24/19 03/25/19 1515:00 23:00 07:00 IntakeIntake Total 600 ml 1225 ml 1120 ml OutputOutput Total 2800 ml BalanceBalance 600 ml -1575 ml 1120 ml Exam Constitutional: alert, oriented, well developed Psych: no complaints, nl mood/affect Head: normocephalic, atraumatic Eyes: EOMI, nl lids ENMT: nl external ears & nose Neck: supple; No jvd, No bruits Respiratory: clear to auscultation, normal air movement Cardiovascular: regular rate and rhythm; No murmurs/extra sounds Gastrointestinal: soft, non-tender Musculoskeletal: nl extremities to inspection Extremities: No edema Neurological: nl mental status, nl speech Skin: nl turgor Labs Result Diagram: 03/25/19 0502 03/25/19 0502 Results 24hrs Laboratory Tests Test 03/24/19 08:56 03/24/19 12:24 03/24/19 17:21 03/24/19 20:29 Bedside Glucose 177 228 H 114 171 Test 03/25/19 05:02 White Blood Count 10.6 Red Blood Count 3.74 L Hemoglobin 12.4 L Hematocrit 35.8 L Mean Corpuscular Volume 95.7 Mean Corpuscular 33.2 H Hemoglobin Mean Corpuscular 34.6 Hemoglobin Concent Red Cell Distribution 12.3 Width Platelet Count 184 Mean Platelet Volume 11.6 H Immature Granulocytes % 0.400 Neutrophils % 52.4 Lymphocytes % 33.5 Monocytes % 9.7 Eosinophils % 3.2 Basophils % 0.8 Nucleated Red Blood 0.0 Cells % Immature Granulocytes # 0.040 H Neutrophils # 5.6 Lymphocytes # 3.6 H Monocytes # 1.0 H Eosinophils # 0.3 Basophils # 0.1 Nucleated Red Blood 0.0 Cells # Sodium Level 139 Potassium Level 4.1 Chloride Level 108 Carbon Dioxide Level 25 Anion Gap 6 Blood Urea Nitrogen 10 Creatinine 0.64 Est Glomerular Filtrat > 60 Rate mL/min Glucose Level 165 Calcium Level 8.8 Phosphorus Level 4.3 Magnesium Level 1.9 Medications Medications Current Medications Aspirin (Halfprin) 81 mg DAILY PO Last administered on 03/24/19at 09:42; Admin Dose 81 MG; Start 03/24/19 at 09:00 Al Hydrox/Mg Hydrox/Simethicone (Mag-Al Plus) 30 ml Q4H PRN PO GASTROINTESTINAL UPSET; Start 03/23/19 at 07:30 Ondansetron HCl (Zofran Inj) 4 mg Q4H PRN IV NAUSEA AND/OR VOMITING; Start 03/23/19 at 07:30 Atorvastatin Calcium (Lipitor) 80 mg DAILY@21 PO Last administered on 03/24/19at 20:26; Admin Dose 80 MG; Start 03/23/19 at 21:00 Insulin Aspart (Novolog Insulin Pen) NOVOLOG *MILD* ALGORITHM WITH MEALS BEDTIME SC Last administered on 03/24/19at 12:44; Admin Dose 3 UNIT; Start 03/23/19 at 17:35 Miscellaneous Information 1 ea NOTE XX ; Start 03/23/19 at 12:30 Glucose (Glutose) 15 gm Q15M PRN PO DECREASED GLUCOSE; Start 03/23/19 at 12:30 Glucose (Glutose) 22.5 gm Q15M PRN PO DECREASED GLUCOSE; Start 03/23/19 at 12:30 Dextrose (D50w Syringe) 25 ml Q15M PRN IV DECREASED GLUCOSE; Start 03/23/19 at 12:30 Dextrose (D50w Syringe) 50 ml Q15M PRN IV DECREASED GLUCOSE; Start 03/23/19 at 12:30 Glucagon (Glucagen) 1 mg Q15M PRN IM DECREASED GLUCOSE; Start 03/23/19 at 12:30 Glucose (Glutose) 15 gm Q15M PRN BUCCAL DECREASED GLUCOSE; Start 03/23/19 at 12 :30 Diagnostic Test (Pha) (Accu-Chek) 1 ea 02 XX Last administered on 03/24/19at 02:10; Admin Dose 1 EA; Start 03/24/19 at 02:00 Clopidogrel Bisulfate (plaVIX) 75 mg DAILY PO ; Start 03/25/19 at 09:00 Repaglinide (Prandin) 1 mg AC MEALS PO Last administered on 03/24/19at 17:24; Admin Dose 1 MG; Start 03/24/19 at 11:00 Sodium Chloride 1,000 ml @ 75 mls/hr [id number] IV Last administered on 03/24/19at 20:27; Admin Dose 75 MLS/HR; Start 03/24/19 at 09:30 Losartan Potassium (Cozaar) 25 mg DAILY PO Last administered on 03/24/19at 17:24; Admin Dose 25 MG; Start 03/24/19 at 16:30 GOVIND RAMEY Mar 25, 2019 07:34
[2019-03-25] MEDS: REPAGLINIDE 1 MG TAB PO SCH ×3 (07:46→17:14)
[2019-03-25] MEDS: INSULIN ASPART [NOVOLOG] 3 ML PEN SC SCH ×4 (07:50→20:07)
[2019-03-25] MEDS: LOSARTAN 25 MG TAB PO SCH (09:00)
[2019-03-25] MEDS: ASPIRIN (EC) 81 MG TAB PO SCH (09:07)
[2019-03-25] MEDS: CLOPIDOGREL 75 MG TAB PO SCH (09:07)
--- NOTE | 2019-03-25 12:51 | PN ---
Date/Time of Note Date/Time of Note DATE: 03/25/19 TIME: 12:49 Objective Vitals Vital Signs Date Temp Pulse Resp B/P (MAP) Pulse Ox O2 O2 Flow FiO2 Time Delivery Rate 03/25/19 85 08:00 03/25/19 98.0 18 89/57 (68) 98 07:52 03/24/19 Room Air 16:00 03/23/19 2.0 06:00 Intake and Output 03/24/19 03/24/19 03/25/19 1515:00 23:00 07:00 IntakeIntake Total 600 ml 1225 ml 1120 ml OutputOutput Total 2800 ml BalanceBalance 600 ml -1575 ml 1120 ml Results Result Diagram: 03/25/19 0502 03/25/19 0502 Medications Medications Current Medications Aspirin (Halfprin) 81 mg DAILY PO Last administered on 03/25/19at 09:07; Admin Dose 81 MG; Start 03/24/19 at 09:00 Al Hydrox/Mg Hydrox/Simethicone (Mag-Al Plus) 30 ml Q4H PRN PO GASTROINTESTINAL UPSET; Start 03/23/19 at 07:30 Ondansetron HCl (Zofran Inj) 4 mg Q4H PRN IV NAUSEA AND/OR VOMITING; Start 03/23/19 at 07:30 Atorvastatin Calcium (Lipitor) 80 mg DAILY@21 PO Last administered on 03/24/19at 20:26; Admin Dose 80 MG; Start 03/23/19 at 21:00 Insulin Aspart (Novolog Insulin Pen) NOVOLOG *MILD* ALGORITHM WITH MEALS BEDTIME SC Last administered on 03/25/19at 07:50; Admin Dose 1 UNIT; Start 03/23/19 at 17:35 Miscellaneous Information 1 ea NOTE XX ; Start 03/23/19 at 12:30 Glucose (Glutose) 15 gm Q15M PRN PO DECREASED GLUCOSE; Start 03/23/19 at 12:30 Glucose (Glutose) 22.5 gm Q15M PRN PO DECREASED GLUCOSE; Start 03/23/19 at 12:30 Dextrose (D50w Syringe) 25 ml Q15M PRN IV DECREASED GLUCOSE; Start 03/23/19 at 12:30 Dextrose (D50w Syringe) 50 ml Q15M PRN IV DECREASED GLUCOSE; Start 03/23/19 at 12:30 Glucagon (Glucagen) 1 mg Q15M PRN IM DECREASED GLUCOSE; Start 03/23/19 at 12:30 Glucose (Glutose) 15 gm Q15M PRN BUCCAL DECREASED GLUCOSE; Start 03/23/19 at 12:30 Diagnostic Test (Pha) (Accu-Chek) 1 ea 02 XX Last administered on 03/24/19at 02:10; Admin Dose 1 EA; Start 03/24/19 at 02:00 Clopidogrel Bisulfate (plaVIX) 75 mg DAILY PO Last administered on 03/25/19at 09:07; Admin Dose 75 MG; Start 03/25/19 at 09:00 Repaglinide (Prandin) 1 mg AC MEALS PO Last administered on 03/25/19at 12:31; Admin Dose 1 MG; Start 03/24/19 at 11:00 Metformin HCl (Glucophage) 500 mg BID WITH MEALS PO ; Start 03/25/19 at 18:00 Losartan Potassium (Cozaar) 12.5 mg DAILY PO ; Start 03/26/19 at 09:00 VTE Prophylaxis Risk score (from Ns)>0 risk: 1 SCD applied (from Ns): No SCD contraindication: other Lines/Catheters IV Catheter Type: Tracy in Place: No Assessment/Plan Hospital Course Subjective Patient feeling well, no chest pain Objective Physical exam General: Patient is laying in bed and answers questions appropriately Mentation: Patient is alert and oriented 4, Head: Normocephalic atraumatic Eyes: EOMI, pupils reactive to light Neck: Supple, nontender, midline Respiratory: Clear to auscultation bilaterally Cardiovascular: regular rate, no obvious murmurs Gastrointestinal: non-tender to palpation, bowel sounds heard. Neurological: Moves all extremities spontaneously Skin: No new skin lesions Assessment and plan ST elevation [place] -Status post emergent left heart cath with finding of coronary artery disease status post PCI to RCA done on March 23, 2019 -continue medications started by mill work which includes aspirin and Plavix -No beta-whitney per cardiology due to bradycardia -Losartan started per cardiology however will reduce dose today due to mild hypotension Newly diagnosed diabetes mellitus type 2 -A1c 9.6 -Stop insulin for now as patient will be unlikely to afford them as patient has no insurance -Prandin was started yesterday, metformin to start today, will need to adjust dosage and will likely discharge patient on glipizide and metformin due to no insurance status. -control integration engineer will likely be very beneficial to this patient as he has no insurance and limited resources, founder will be available tomorrow. -Monitor Tobacco use -Smoking cessation therapy Rhabdomyolysis -Continue hydration Disposition -Monitor CK for resolving rhabdomyolysis, patient will benefit from visiting with a founder before discharge as patient is new onset diabetes and has no insurance and limited outside resources, will continue to taper blood pressure medications due to mild hypotension as well as taper and adjust diabetic medications before discharge, plan discharge in 1 to 2 days. SPENSER JOHN Mar 25, 2019 12:51
[2019-03-25] MEDS: metFORMIN 500 MG TAB PO SCH (17:15)
[2019-03-25] MEDS: ATORVASTATIN 80 MG TAB PO SCH (20:06)
[2019-03-26] VITALS (10 sets, daily range): BP systolic 96–123; BP diastolic 58–77; PULSE 57–82; RESP 18
[2019-03-26] MEDS: ACCUCHECK AT 2AM (Patients on SS coverage) XX SCH (02:00)
[2019-03-26] MEDS: REPAGLINIDE 1 MG TAB PO SCH ×2 (06:14→12:13)
--- NOTE | 2019-03-26 07:40 | CONS ---
Assessment/Plan Assessment/Plan Assessment/Plan (Daily) Assessment: STEMI inferior wall, s/p PCI/stent Diabetes, newly diagnosed, type 2 Tobacco use Alcohol heavy use Plan: no change in cardiac mgt Consultation Date/Type/Reason Admit Date/Time Mar 23, 2019 at 07:21 Initial Consult Date Type of Consult Cardiology Date/Time of Note DATE: 03/26/19 TIME: 07:39 24 HR Interval Summary Free Text/Dictation no chest pain, no sob, no palpitations Detailed Summary Respiratory: no complaints Cardiovascular: no complaints Gastrointestinal: no complaints Musculoskeletal: no complaints Skin: no complaints Neurologic: no complaints Exam/Review of Systems Vital Signs Vitals Vital Signs Date Temp Pulse Resp B/P (MAP) Pulse Ox O2 O2 Flow FiO2 Time Delivery Rate 03/26/19 98.0 60 18 96/58 (71) 99 04:52 03/24/19 Room Air 16:00 03/23/19 2.0 06:00 Intake and Output 03/25/19 03/25/19 03/26/19 1515:00 23:00 07:00 IntakeIntake Total 900 ml 400 ml BalanceBalance 900 ml 400 ml Exam Constitutional: alert, oriented Head: normocephalic, atraumatic Neck: supple Respiratory: clear to auscultation Cardiovascular: regular rate and rhythm Gastrointestinal: soft Musculoskeletal: nl extremities to inspection Extremities: normal pulses Labs Result Diagram: 03/26/19 0451 03/26/19 0451 Results 24hrs Laboratory Tests Test 03/25/19 12:31 03/25/19 16:57 03/25/19 20:05 03/26/19 04:51 Bedside Glucose 137 106 180 White Blood Count 9.7 Red Blood Count 3.91 L Hemoglobin 12.7 L Hematocrit 37.4 L Mean Corpuscular Volume 95.7 Mean Corpuscular 32.5 Hemoglobin Mean Corpuscular 34.0 Hemoglobin Concent Red Cell Distribution 12.3 Width Platelet Count 181 Mean Platelet Volume 11.2 H Immature Granulocytes % 0.200 Neutrophils % 44.2 Lymphocytes % 38.7 Monocytes % 10.6 Eosinophils % 5.5 Basophils % 0.8 Nucleated Red Blood 0.0 Cells % Immature Granulocytes # 0.020 Neutrophils # 4.3 Lymphocytes # 3.8 H Monocytes # 1.0 H Eosinophils # 0.5 Basophils # 0.1 Nucleated Red Blood 0.0 Cells # Sodium Level 141 Potassium Level 4.0 Chloride Level 108 Carbon Dioxide Level 27 Anion Gap 6 Blood Urea Nitrogen 9 Creatinine 0.62 Est Glomerular Filtrat > 60 Rate mL/min Glucose Level 144 Calcium Level 9.1 Phosphorus Level 4.6 Magnesium Level 1.9 Creatine Kinase 210 H Medications Medications Current Medications Aspirin (Halfprin) 81 mg DAILY PO Last administered on 03/25/19at 09:07; Admin Dose 81 MG; Start 03/24/19 at 09:00 Al Hydrox/Mg Hydrox/Simethicone (Mag-Al Plus) 30 ml Q4H PRN PO GASTROINTESTINAL UPSET; Start 03/23/19 at 07:30 Ondansetron HCl (Zofran Inj) 4 mg Q4H PRN IV NAUSEA AND/OR VOMITING; Start 03/23/19 at 07:30 Atorvastatin Calcium (Lipitor) 80 mg DAILY@21 PO Last administered on 03/25/19at 20:06; Admin Dose 80 MG; Start 03/23/19 at 21:00 Insulin Aspart (Novolog Insulin Pen) NOVOLOG *MILD* ALGORITHM WITH MEALS BEDTI ME SC Last administered on 03/25/19at 07:50; Admin Dose 1 UNIT; Start 03/23/19 at 17:35 Miscellaneous Information 1 ea NOTE XX ; Start 03/23/19 at 12:30 Glucose (Glutose) 15 gm Q15M PRN PO DECREASED GLUCOSE; Start 03/23/19 at 12:30 Glucose (Glutose) 22.5 gm Q15M PRN PO DECREASED GLUCOSE; Start 03/23/19 at 12:30 Dextrose (D50w Syringe) 25 ml Q15M PRN IV DECREASED GLUCOSE; Start 03/23/19 at 12:30 Dextrose (D50w Syringe) 50 ml Q15M PRN IV DECREASED GLUCOSE; Start 03/23/19 at 12:30 Glucagon (Glucagen) 1 mg Q15M PRN IM DECREASED GLUCOSE; Start 03/23/19 at 12:30 Glucose (Glutose) 15 gm Q15M PRN BUCCAL DECREASED GLUCOSE; Start 03/23/19 at 12:30 Diagnostic Test (Pha) (Accu-Chek) 1 ea 02 XX Last administered on 03/24/19at 02:10; Admin Dose 1 EA; Start 03/24/19 at 02:00 Clopidogrel Bisulfate (plaVIX) 75 mg DAILY PO Last administered on 03/25/19at 09:07; Admin Dose 75 MG; Start 03/25/19 at 09:00 Repaglinide (Prandin) 1 mg AC MEALS PO Last administered on 03/26/19at 06:14; Admin Dose 1 MG; Start 03/24/19 at 11:00 Metformin HCl (Glucophage) 500 mg BID WITH MEALS PO Last administered on 03/25/19at 17:15; Admin Dose 500 MG; Start 03/25/19 at 18:00 Losartan Potassium (Cozaar) 12.5 mg DAILY PO ; Start 03/26/19 at 09:00 XANDER FOY MD Mar 26, 2019 07:40
[2019-03-26] MEDS: metFORMIN 500 MG TAB PO SCH ×2 (07:55→17:39)
[2019-03-26] MEDS: INSULIN ASPART [NOVOLOG] 3 ML PEN SC SCH ×4 (07:55→20:24)
[2019-03-26] MEDS: CLOPIDOGREL 75 MG TAB PO SCH (08:24)
[2019-03-26] MEDS: LOSARTAN 25 MG TAB PO SCH (08:24)
[2019-03-26] MEDS: ASPIRIN (EC) 81 MG TAB PO SCH (08:24)
--- NOTE | 2019-03-26 14:02 | PN ---
Date/Time of Note Date/Time of Note DATE: 03/26/19 TIME: 13:58 Assessment/Plan VTE Prophylaxis Risk score (from Ns)>0 risk: 4 SCD applied (from [facility] No SCD contraindicated: low risk/ambulating Pharmacological prophylaxis: NA/contraindicated Pharm contraindication: low risk/ambulating Lines/Catheters IV [facility]ter [facility]from [facility] Saline Lock Urinary Cath still in place: No Assessment/Plan Assessment/Plan 1. ST elevation NE - C s/p PCI with stenting to RCA on 03/23/19 - Cardiology consultation appreciated and no further intervention needed - continue on DAPT 2. Diabetes mellitus - new onset - A1c noted - would benefit diabetic education prior to discharge home 3. Tobacco use - Smoking cessation counseling offered 4. Rhabdomyolysis- resolving - Continue hydration 5. Disposition - DM educator consulted for teaching given new dx DM - will need to make sure DAPT is covered prior to discharge Result Diagram: 03/26/19 0451 03/26/19 0451 Results 24hrs Laboratory Tests Test 03/25/19 16:57 03/25/19 20:05 03/26/19 04:51 03/26/19 07:49 Bedside Glucose 106 180 140 White Blood Count 9.7 Red Blood Count 3.91 L Hemoglobin 12.7 L Hematocrit 37.4 L Mean Corpuscular 95.7 Volume Mean Corpuscular 32.5 Hemoglobin Mean Corpuscular 34.0 Hemoglobin Concent Red Cell Distribution 12.3 Width Platelet Count 181 Mean Platelet Volume 11.2 H Immature Granulocytes 0.200 % Neutrophils % 44.2 Lymphocytes % 38.7 Monocytes % 10.6 Eosinophils % 5.5 Basophils % 0.8 Nucleated Red Blood 0.0 Cells % Immature Granulocytes 0.020 # Neutrophils # 4.3 Lymphocytes # 3.8 H Monocytes # 1.0 H Eosinophils # 0.5 Basophils # 0.1 Nucleated Red Blood 0.0 Cells # Sodium Level 141 Potassium Level 4.0 Chloride Level 108 Carbon Dioxide Level 27 Anion Gap 6 Blood Urea Nitrogen 9 Creatinine 0.62 Est Glomerular > 60 Filtrat Rate mL/min Glucose Level 144 Calcium Level 9.1 Phosphorus Level 4.6 Magnesium Level 1.9 Creatine Kinase 210 H Test 03/26/19 12:04 Bedside Glucose 111 Subjective 24 Hr Interval Summary Free Text/Dictation Patient denies any chest pain or shortness of breath. Discussed need for diabetic education prior to discharge home given new dx of DM. Exam/Review of Systems Exam Vitals Vital Signs Date Temp Pulse Resp B/P (MAP) Pulse Ox O2 O2 Flow FiO2 Time Delivery Rate 03/26/19 98.0 75 18 123/72 98 12:35 (89) 03/24/19 Room Air 16:00 03/23/19 2.0 06:00 Intake and Output 03/25/19 03/25/19 03/26/19 1515:00 23:00 07:00 IntakeIntake Total 900 ml 400 ml BalanceBalance 900 ml 400 ml Exam General: no acute distress. answering questions appropriately Neck: supple Chest: nontender CVS: S1, S2, regular rate and rhythm. no murmurs Lungs: clear to auscultation bilaterally. no wheezing or rhonchi Abd: soft, nontender, nondistended. no rebound or guarding. bowel sounds present diffusely Ext: moving all extremities. no cyanosis, clubbing, or edema Skin: warm, dry. no rashes or lesions appreciated Results Results 24hrs Laboratory Tests Test 03/25/19 16:57 03/25/19 20:05 03/26/19 04:51 03/26/19 07:49 Bedside Glucose 106 180 140 White Blood Count 9.7 Red Blood Count 3.91 L Hemoglobin 12.7 L Hematocrit 37.4 L Mean Corpuscular 95.7 Volume Mean Corpuscular 32.5 Hemoglobin Mean Corpuscular 34.0 Hemoglobin Concent Red Cell Distribution 12.3 Width Platelet Count 181 Mean Platelet Volume 11.2 H Immature Granulocytes 0.200 % Neutrophils % 44.2 Lymphocytes % 38.7 Monocytes % 10.6 Eosinophils % 5.5 Basophils % 0.8 Nucleated Red Blood 0.0 Cells % Immature Granulocytes 0.020 # Neutrophils # 4.3 Lymphocytes # 3.8 H Monocytes # 1.0 H Eosinophils # 0.5 Basophils # 0.1 Nucleated Red Blood 0.0 Cells # Sodium Level 141 Potassium Level 4.0 Chloride Level 108 Carbon Dioxide Level 27 Anion Gap 6 Blood Urea Nitrogen 9 Creatinine 0.62 Est Glomerular > 60 Filtrat Rate mL/min Glucose Level 144 Calcium Level 9.1 Phosphorus Level 4.6 Magnesium Level 1.9 Creatine Kinase 210 H Test 03/26/19 12:04 Bedside Glucose 111 Medications Medication Current Medications Aspirin (Halfprin) 81 mg DAILY PO Last administered on 03/26/19at 08:24; Admin Dose 81 MG; Start 03/24/19 at 09:00 Al Hydrox/Mg Hydrox/Simethicone (Mag-Al Plus) 30 ml Q4H PRN PO GASTROINTESTINAL UPSET; Start 03/23/19 at 07:30 Ondansetron HCl (Zofran Inj) 4 mg Q4H PRN IV NAUSEA AND/OR VOMITING; Start 03/23/19 at 07:30 Atorvastatin Calcium (Lipitor) 80 mg DAILY@21 PO Last administered on 03/25/19at 20:06; Admin Dose 80 MG; Start 03/23/19 at 21:00 Insulin Aspart (Novolog Insulin Pen) NOVOLOG *MILD* ALGORITHM WITH MEALS BEDTIME SC Last administered on 03/25/19at 07:50; Admin Dose 1 UNIT; Start 03/23/19 at 17:35 Miscellaneous Information 1 ea NOTE XX ; Start 03/23/19 at 12:30 Glucose (Glutose) 15 gm Q15M PRN PO DECREASED GLUCOSE; Start 03/23/19 at 12:30 Glucose (Glutose) 22.5 gm Q15M PRN PO DECREASED GLUCOSE; Start 03/23/19 at 12:30 Dextrose (D50w Syringe) 25 ml Q15M PRN IV DECREASED GLUCOSE; Start 03/23/19 at 12:30 Dextrose (D50w Syringe) 50 ml Q15M PRN IV DECREASED GLUCOSE; Start 03/23/19 at 12:30 Glucagon (Glucagen) 1 mg Q15M PRN IM DECREASED GLUCOSE; Start 03/23/19 at 12:30 Glucose (Glutose) 15 gm Q15M PRN BUCCAL DECREASED GLUCOSE; Start 03/23/19 at 12:30 Diagnostic Test (Pha) (Accu-Chek) 1 ea 02 XX Last administered on 03/24/19at 02:10; Admin Dose 1 EA; Start 03/24/19 at 02:00 Clopidogrel Bisulfate (plaVIX) 75 mg DAILY PO Last administered on 03/26/19at 08:24; Admin Dose 75 MG; Start 03/25/19 at 09:00 Repaglinide (Prandin) 1 mg AC MEALS PO Last administered on 03/26/19at 12:13; Admin Dose 1 MG; Start 03/24/19 at 11:00 Metformin HCl (Glucophage) 500 mg BID WITH MEALS PO Last administered on 03/26/19at 07:55; Admin Dose 500 MG; Start 03/25/19 at 18:00 Losartan Potassium (Cozaar) 12.5 mg DAILY PO ; Start 03/26/19 at 09:00 THANH DE SOUZA MD Mar 26, 2019 14:02
[2019-03-26] MEDS ORDERED: CLOP75TA28 PO (16:19)
[2019-03-26] MEDS ORDERED: METF-849 PO (16:19)
[2019-03-26] MEDS ORDERED: ATOR-2 PO (16:19)
[2019-03-26] MEDS ORDERED: GLIP5TAB13 PO (16:19)
[2019-03-26] MEDS ORDERED: ASPI-1044 PO (16:19)
[2019-03-26] MEDS ORDERED: LOSA25TA2 PO (16:19)
[2019-03-26] MEDS: glipiZIDE 5 MG TAB PO SCH (18:36)
[2019-03-26] MEDS: ATORVASTATIN 80 MG TAB PO SCH (20:23)
[2019-03-27] MEDS: ACCUCHECK AT 2AM (Patients on SS coverage) XX SCH (01:42)
[2019-03-27 02:17] VITALS: BP 114/72; PULSE 75; RESP 18
[2019-03-27 06:20] VITALS: BP 109/70; PULSE 72; RESP 18
[2019-03-27] MEDS: INSULIN ASPART [NOVOLOG] 3 ML PEN SC SCH ×2 (08:00→12:00)
[2019-03-27] MEDS: ASPIRIN (EC) 81 MG TAB PO SCH (08:12)
[2019-03-27] MEDS: glipiZIDE 5 MG TAB PO SCH (08:12)
[2019-03-27] MEDS: metFORMIN 500 MG TAB PO SCH (08:12)
[2019-03-27] MEDS: CLOPIDOGREL 75 MG TAB PO SCH (08:12)
[2019-03-27] MEDS: LOSARTAN 25 MG TAB PO SCH (08:14)
[2019-03-27 08:16] VITALS: BP 104/58; PULSE 74; RESP 18
--- NOTE | 2019-03-27 10:21 | PDOCDIS ---
Discharge Instructions CONDITION [id number] Patient Condition: [id number] Stable HOME CARE INSTRUCTIONS: [id number] Your diet recommendation is: [id number] Carbohydrate controlled/low-cholesterol diet FOLLOW UP/APPOINTMENTS Follow-up Plan Follow-up with in 2 weeks Osmel Magana, Specialty Interventional Cardiology Comments Office Address [facility] [address] [address] Office Follow-up with primary care physician in 1 week You have stent placed into your coronary arteries and you need to take aspirin and Plavix together. He also needs to take Lustra lowering medicine and blood pressure lowering medicines. MIGUEL VALERIO NP Mar 27, 2019 10:21
--- NOTE | 2019-03-27 10:30 | DS ---
Date/Time of Note Date/Time of Note DATE: 03/27/19 TIME: 10:27 Discharge Summary Admission/Discharge Info Admit Date/Time Mar 23, 2019 at 07:21 Discharge Date/Time Discharge Diagnosis ST elevation IN - [facility] s/p PCI with stenting to RCA on 03/23/19 Diabetes mellitus II Tobacco use Patient Condition: Stable Consults Procedures 04/21/2019: Operation/Procedure Performed Left heart catheterization Right and left coronary angiogram Interpretation and supervision of right and left coronary angiogram PCI of the mid to distal RCA with a placement of a 3.0 x 16 mm Synergy drug- eluting stent Left ventricular pressure measurements Right femoral artery approach Conscious sedation Hospital Course 43-year-old male with a past medical history of tobacco use, who apparently has not seen a primary care physician in many years, presented to the emergency room with chest pain x3-day duration. Patient also had associated shortness of breath. Patient was noted with inferior ST elevation myocardial infarction. He was also noted with new onset diabetes. Patient underwent PCI to RCA on 03/23/2019. Patient was continued on aspirin, Plavix, statin. Patient was continued on insulin for diabetes with eventual oral transition. He was also started on angiotensin receptor blockers secondary to diabetes for blood pressure management. At this time, patient is stable labs and vital signs. No further chest pain. Patient is cleared from cardiology point of view for outpatient follow-up. We will discharge patient with outpatient follow-up. Case management to make sure patient's prescriptions will be delivered to bedside. Approximately 60-minute was spent on coordinating the discharge on this patient. Patient was seen in collaboration with Dr. Adames. Home Meds Active Scripts Glipizide* (Glipizide*) 5 Mg Tablet, 5 MG PO BID for 30 Days, #60 TAB Prov:THANH DE SOUZA MD 03/26/19 Metformin* (Glucophage*) 500 Mg Tab, 500 MG PO BID WITH MEALS for 30 Days, #60 TAB 3 Refills Prov:THANH DE SOUZA MD 03/26/19 Aspirin Delayed Release (Aspirin Delayed Release) 81 Mg Tablet.dr 81 MG PO DAILY for 30 Days, #30 TAB Prov:THANH DE SOUZA MD 03/26/19 Losartan Potassium* (Cozaar*) 25 Mg Tablet, 12.5 MG PO DAILY for 30 Days, #30 TAB Prov:THANH DE SOUZA MD 03/26/19 Atorvastatin* (Atorvastatin*) 80 Mg Tablet, 80 MG PO DAILY@21 for 30 Days, #30 TAB 2 Refills Prov:THANH DE SOUZA MD 03/26/19 Clopidogrel Bisulfate (Clopidogrel) 75 Mg Tablet, 75 MG PO DAILY for 30 Days, #30 TAB 3 Refills Prov:THANH DE SOUZA MD 03/26/19 Follow-up Plan Follow-up with in 2 weeks Osmel Magana, Specialty Interventional Cardiology Comments Office Address [facility] [address] [address] Office Follow-up with primary care physician in 1 week You have stent placed into your coronary arteries and you need to take aspirin and Plavix together. He also needs to take Lustra lowering medicine and blood pressure lowering medicines. Primary Care Provider Care Physician No Primary Pending Labs Laboratory Tests Test 03/26/19 12:04 03/26/19 17:31 03/26/19 20:21 03/27/19 01:35 Bedside 111 128 200 107 Glucose mg/dL (70-220) mg/dL (70-220) mg/dL (70-220) mg/dL (70-220) Test 03/27/19 08:06 Bedside 139 Glucose mg/dL (70-220) MIGUEL VALERIO NP Mar 27, 2019 10:30
== END 2019-03-27 12:15 | disposition home or self-care (01) | DRG 247 ==
LOC: E/R 05:30 → CCL 05:42 → SDS 06:41 → CCL 07:20 → REC 07:21 → ICU 07:45 → 6WM 03-24 18:27 → PP2 03-26 19:12
PROVIDERS: ADMIT Internal Medicine Cardiovascular Disease; ATTEND Internal Medicine
PROC: 027034Z Dilation of Coronary Artery, One Artery with Drug-eluting Intraluminal Device, Percutaneous Approach (ICD-10-PCS; principal; 2019-03-23)
PROC: 4A023N7 Measurement of Cardiac Sampling and Pressure, Left Heart, Percutaneous Approach (ICD-10-PCS; 2019-03-23)
PROC: B211YZZ Fluoroscopy of Multiple Coronary Arteries using Other Contrast (ICD-10-PCS; 2019-03-23)
PROC: B215YZZ Fluoroscopy of Left Heart using Other Contrast (ICD-10-PCS; 2019-03-23)
DX: I21.19 ST elevation (STEMI) myocardial infarction involving other coronary artery of inferior wall (principal); M62.82 Rhabdomyolysis; I25.10 Atherosclerotic heart disease of native coronary artery without angina pectoris; E11.9 Type 2 diabetes mellitus without complications; F17.200 Nicotine dependence, unspecified, uncomplicated
CPT/HCPCS: 36415; 71045; 80048; 80061; 82550; 82553; 82962; 83036; 83735; 84100; 84132; 84443; 84484; 85025; 85610; 85730; 93005; 93306; 93458; 96374; 96375; C1725; C1760; C1769; C1874; C1887; C1894; C9606; J0583; J1644; J1815; J2250; J2270; J2405; J3010; J7030; Q9967